=== PATIENT | male | born 2000 | race African-American/Black ===

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

== ENCOUNTER 2019-03-17 20:14 | Emergency (ER) | payer SELFPAY ==
[~2019-03-17] VITALS: Ht 188 cm; Wt 71.7 kg
[~2019-03-17 20:14] MED LIST changes: +ERYT1OIN6 LEFTEYE; +HYDR-2761 PO
[2019-03-17 21:26] LABS: BASO % 0 % (0-3); EOS % 0 % (0-3); HEMATOCRIT 47.7 % (39.0-53.0); HEMOGLOBIN 15.8 g/dL (13.0-17.5); LYMPH # 0.5 x10^3/uL (1.0-4.8); LYMPH % 5 % (24-48); MEAN CORPUSCULAR HEMOGLOBIN 28 pg (25-35); MEAN CORPUSCULAR HGB CONC 33 g/dL (31-37); MEAN CORPUSCULAR VOLUME 86 fL (79-100); MONO # 0.8 x10^3/uL (0.0-1.1); MONO % 7 % (0-9); NEUT # 9.2 x10^3/uL (1.8-7.7); NEUT % 87 % (31-73); PLATELET COUNT 212 x10^3/uL (140-400); RED BLOOD COUNT 5.55 x10^6/uL (4.30-5.70); RED CELL DISTRIBUTION WIDTH 13.1 % (11.5-14.5); WHITE BLOOD COUNT 10.6 x10^3/uL (4.0-11.0)
[2019-03-17] MEDS ORDERED: IV NORMAL SALINE 1000ML BAG 1,000 ML IV ONE (21:30)
[2019-03-17] MEDS ORDERED: ONDANSETRON PF 4 MG/2 ML VIAL. IV ONE (21:30)
[2019-03-17 21:40] LABS: ALBUMIN 4.1 g/dL (3.4-5.0); ALBUMIN/GLOBULIN RATIO 1.2 (1.0-1.7); CALCIUM 8.9 mg/dL (8.5-10.1); CREATININE 1.2 mg/dL (0.7-1.3); GFR 94.4; POTASSIUM 3.5 mmol/L (3.5-5.1); TOTAL BILIRUBIN 1.4 mg/dL (0.2-1.0); TOTAL PROTEIN 7.6 g/dL (6.4-8.2)
[2019-03-17 21:47] LABS: % ATYL 3 % (0-0); % BANDS 9 % (0-9); % LYMPHS 3 % (24-48); % MONOS 5 % (0-10); % SEGS 80 % (35-66); PLT ESTIMATE ADEQUATE (ADEQUATE)
[2019-03-17 23:28] LABS: BILIRUBIN,URINE NEGATIVE (NEG); CLARITY,URINE CLEAR; COLOR,URINE YELLOW; NITRITE,URINE NEGATIVE (NEG); PH,URINE 8.5; PROTEIN,URINE NEGATIVE (NEG-TRACE)
[2019-03-17 23:38] LABS: SQUAMOUS EPITHELIAL CELL,UR OCC /LPF
[2019-03-17 23:39] LABS: AMORPHOUS SEDIMENT,UR PRESENT /HPF; BACTERIA,URINE 0 /HPF (0-FEW); RBC,URINE 0 /HPF (0-2)
[2019-03-17] MEDS ORDERED: ONDA4TAB11 PO (23:56)
--- NOTE | 2019-03-17 23:57 | PHYS DOC ---
Past Medical History Past Medical History: No Pertinent History (TONIE PAULA APRN) Past Surgical History: No Surgical History (TONIE PAULA APRN) Alcohol Use: None Drug Use: Marijuana (TONIE PAULA APRN) Attending Signature I have participated in the care of this patient and I have reviewed and agree with all pertinent clinical information above including history, exam, and recommendations. (RICARDO HYATT MD) Adult General Chief Complaint Chief Complaint: ABDOMINAL PAIN HPI HPI Patient is a 18 year old AA male who presents to the emergency department with complaints of nausea, vomiting, and abdominal pain that started approximately one hour ago. Patient states that he last ate at [employer] 3 hours ago and that he thinks he might have food poisoning. Patient states he has only vomited one time. He denies any shortness of breath, chest pain, palpitations, cough, wheezing, fever, sore throat, ear pain, or headache. Patient states he does feel a little lightheaded at this time. He currently rates his pain as 7 out of 10 on a pain scale he describes it as a crampy pain in his abdomen only. He denies any alleviating or exacerbating factors. Patient states he smokes marijuana occasionally but he denies smoking any marijuana today. All other ROS is neg unless otherwise noted in HPI. (TONIE PAULA APRN) Review of Systems Review of Systems See Above (TONIE PAULA APRN) Current Medications Current Medications Current Medications Medications (Trade) Dose Ordered Sig/Vika Start Time Stop Time Status Last Admin Dose Admin Lorazepam (Ativan Inj) 1 mg 1X ONCE 03/17/19 21:30 03/17/19 21:31 DC 03/17/19 21:27 1 MG Ondansetron HCl (Zofran) 4 mg 1X ONCE 03/17/19 21:30 03/17/19 21:31 DC 03/17/19 21:27 4 MG Sodium Chloride 1,000 ml @ 1,000 mls/hr 1X ONCE 03/17/19 21:30 03/17/19 22:29 DC 03/17/19 21:28 1,000 MLS/HR (RICARDO HYATT MD) Allergies Allergies Allergies Coded Allergies Type Severity Reaction Last Updated Verified No Known Drug Allergies 01/22/14 No (RICARDO HYATT MD) Physical Exam Physical Exam See Above Constitutional: Well developed, well nourished, no acute distress, non-toxic appearance. [] HENT: Normocephalic, atraumatic, bilateral external ears normal, oropharynx moist, no oral exudates, nose normal. [] Eyes: PERRLA, EOMI, conjunctiva normal, no discharge. [] Neck: Normal range of motion, no tenderness, supple, no stridor. [] Cardiovascular:Heart rate regular rhythm, no murmur [] Lungs & Thorax: Bilateral breath sounds clear to auscultation [] Abdomen: Bowel sounds normal, soft, no tenderness, no masses, no pulsatile masses. [] Skin: Warm, dry, no erythema, no rash. [] Back: No tenderness, no CVA tenderness. [] Extremities: No cyanosis, ROM intact, no edema. [] Neurologic: Alert and oriented X 3, no focal deficits noted. [] Psychologic: Affect normal, judgement normal, mood normal. [] (TONIE PAULA APRN) Current Patient Data Vital Signs Vital Signs Date Time Temp Pulse Resp B/P (MAP) Pulse Ox O2 Delivery O2 Flow Rate FiO2 03/18/19 00:00 86 25 104/52 (69) 100 Room Air 03/17/19 20:26 97.9 97.9 (RICARDO HYATT MD) Lab Values Laboratory Tests Test 03/17/19 21:15 03/17/19 23:20 White Blood Count 10.6 x10^3/uL (4.0-11.0) Red Blood Count 5.55 x10^6/uL (4.30-5.70) Hemoglobin 15.8 g/dL (13.0-17.5) Hematocrit 47.7 % (39.0-53.0) Mean Corpuscular Volume 86 fL (79-100) Mean Corpuscular Hemoglobin 28 pg (25-35) Mean Corpuscular Hemoglobin Concent 33 g/dL (31-37) Red Cell Distribution Width 13.1 % (11.5-14.5) Platelet Count 212 x10^3/uL (140-400) Neutrophils (%) (Auto) 87 % (31-73) H Lymphocytes (%) (Auto) 5 % (24-48) L Monocytes (%) (Auto) 7 % (0-9) Eosinophils (%) (Auto) 0 % (0-3) Basophils (%) (Auto) 0 % (0-3) Neutrophils # (Auto) 9.2 x10^3/uL (1.8-7.7) H Lymphocytes # (Auto) 0.5 x10^3/uL (1.0-4.8) L Monocytes # (Auto) 0.8 x10^3/uL (0.0-1.1) Eosinophils # (Auto) 0.0 x10^3/uL (0.0-0.7) Basophils # (Auto) 0.0 x10^3/uL (0.0-0.2) Segmented Neutrophils % 80 % (35-66) H Band Neutrophils % 9 % (0-9) Lymphocytes % 3 % (24-48) L Atypical Lymphocytes % (Manual) 3 % (0-0) H Monocytes % 5 % (0-10) Platelet Estimate Adequate (ADEQUATE) Sodium Level 139 mmol/L (136-145) Potassium Level 3.5 mmol/L (3.5-5.1) Chloride Level 100 mmol/L (98-107) Carbon Dioxide Level 26 mmol/L (21-32) Anion Gap 13 (6-14) Blood Urea Nitrogen 9 mg/dL (8-26) Creatinine 1.2 mg/dL (0.7-1.3) Estimated GFR (Cockcroft-Gault) 94.4 BUN/Creatinine Ratio 8 (6-20) Glucose Level 134 mg/dL (70-99) H Calcium Level 8.9 mg/dL (8.5-10.1) Total Bilirubin 1.4 mg/dL (0.2-1.0) H Aspartate Amino Transferase (AST) 16 U/L (15-37) Alanine Aminotransferase (ALT) 12 U/L (16-63) L Alkaline Phosphatase 64 U/L (46-116) Total Protein 7.6 g/dL (6.4-8.2) Albumin 4.1 g/dL (3.4-5.0) Albumin/Globulin Ratio 1.2 (1.0-1.7) Lipase 47 U/L (73-393) L Urine Collection Type Unknown Urine Color Yellow Urine Clarity Clear Urine pH 8.5 Urine Specific [place] 1.020 Urine Protein Negative mg/dL (NEG-TRACE) Urine Glucose (UA) Negative mg/dL (NEG) Urine Ketones (Stick) Trace mg/dL (NEG) Urine Blood Negative (NEG) Urine Nitrite Negative (NEG) Urine Bilirubin Negative (NEG) Urine Urobilinogen Dipstick 1.0 mg/dL (0.2 mg/dL) Urine Leukocyte Esterase Negative (NEG) Urine RBC 0 /HPF (0-2) Urine WBC 1-4 /HPF (0-4) Urine Squamous Epithelial Cells Occ /LPF Urine Amorphous Sediment Present /HPF Urine Bacteria 0 /HPF (0-FEW) Urine Mucus Mod /LPF Laboratory Tests 03/17/19 21:15 Laboratory Tests 03/17/19 21:15 (RICARDO HYATT MD) EKG EKG [] (TONIE PAULA APRN) Radiology/Procedures Radiology/Procedures [] (TONIE PAULA APRN) Course & Med Decision Making Course & Med Decision Making Pertinent Labs and Imaging studies reviewed. (See chart for details) dx: Nausea and vomiting Is a 18-year-old -Citizen Of [place] male who presented to the emergency department with complaints of nausea, vomiting and nonspecific abdominal pain that began an hour prior to arrival. CBC, CMP, and UA are unremarkable for any acute findings. VSS. Patient was given a liter of normal saline, 4 mg Zofran, 1 mg of Ativan IV. He reported feeling better after these medications. A prescription was written for Zofran. Patient was encouraged to follow a clear liquid diet for the next 24 hours and advance his diet as tolerated. [] (TONIE PAULA APRN) Dragon Disclaimer Dragon Disclaimer This electronic medical record was generated, in whole or in part, using a voice recognition dictation system. (TONIE PAULA APRN) Departure Departure Impression: Primary Impression: Nausea & vomiting Disposition: 01 HOME, SELF-CARE Condition: STABLE Referrals: BRAXTON CHAVEZ MD (PCP) Patient Instructions: Abdominal Pain (Nonspecific) Additional Instructions: Fill prescriptions and use them as directed. Recommend clear fluids for the next 24 hours. Then you may advance to bland foods such as bananas, rice, applesauce, and dry toast. Follow-up with your primary care doctor in the next 1-2 days. Return to the emergency room if your symptoms worsen. Scripts Ondansetron Hcl (ONDANSETRON HCL) 4 Mg Tablet 1 TAB PO PRN Q6HRS PRN for NAUSEA/VOMITING for 3 Days, #10 TAB 0 Refills Prov: TONIE PAULA APRN 03/17/19 Problem Qualifiers Primary Impression: Nausea & vomiting Vomiting type: unspecified Vomiting Intractability: non-intractable Qualified Codes: R11.2 - Nausea with vomiting, unspecified TONIE PAULA APRN Mar 17, 2019 23:56 RICARDO HYATT MD Mar 21, 2019 02:08
[2019-03-18] VITALS: BP 104/52
== END 2019-03-18 00:15 | disposition home or self-care (01) ==
LOC: ER 20:14
DX: R11.2 Nausea with vomiting, unspecified (principal); R10.9 Unspecified abdominal pain; R42 Dizziness and giddiness
CPT/HCPCS: 36415; 80053; 81001; 83690; 85007; 85025; 96361; 96374; 96375; 99284; J2060; J2405; J7030; 99281

== ENCOUNTER 2020-02-29 15:30 | Emergency (ER) | payer MEDICARE ==
[~2020-02-29] VITALS: Ht 185.4 cm; Wt 72.7 kg
[~2020-02-29 15:30] MED LIST changes: +ONDA-84 PO
[2020-02-29 17:02] LABS: INFLUENZA A PATIENT NEGATIVE (NEGATIVE); INFLUENZA B PATIENT NEGATIVE (NEGATIVE)
--- NOTE | 2020-02-29 18:38 | ED.ADGEN ---
Past Medical History Past Medical History: No Pertinent History Past Surgical History: No Surgical History Smoking Status: Never Smoker Alcohol Use: None Drug Use: Marijuana General Adult EDM: Chief Complaint: SORE THROAT HPI: HPI: Patient is a 19 year old AA male who presents emergency department with compl aints of a sore throat, cough, body aches, and a headache for the last 2 days. Patient states that he had to call into work and that they are requiring him to get a work excuse in order to return. He denies any known contact with anyone who has COVID-19. He denies any abdominal pain, nausea, vomiting, diarrhea, shortness of breath, chest pain, fever, dizziness, or change in smell or taste. Currently denies any pain. Review of Systems: Review of Systems: Complete ROS is negative unless otherwise noted in HPI. Allergies: Allergies: Allergies Coded Allergies Type Severity Reaction Last Updated Verified No Known Drug Allergies 01/22/14 No Physical Exam: PE: See Above Constitutional: Well developed, well nourished, no acute distress, non-toxic appearance. [] HENT: Normocephalic, atraumatic, bilateral external ears normal, nose normal; mild erythema posterior pharynx [] Eyes: PERRLA, EOMI, conjunctiva normal, no discharge. [] Neck: Normal range of motion, supple, no stridor. [] Cardiovascular:Heart rate regular rhythm Lungs & Thorax: Respirations even and unlabored, no retractions, no respiratory distress Skin: Warm, dry, no erythema, no rash. [] Extremities: No cyanosis, ROM intact, no edema. [] Neurologic: Alert and oriented X 3, no focal deficits noted. [] Psychologic: Affect normal, judgement normal, mood normal. [] Current Patient Data: Labs: Laboratory Tests Test 02/29/20 16:10 Influenza Type A Antigen Negative (NEGATIVE) Influenza Type B Antigen Negative (NEGATIVE) Vital Signs: Vital Signs Date Time Temp Pulse Resp B/P (MAP) Pulse Ox O2 Delivery O2 Flow Rate FiO2 02/29/20 18:45 74 19 131/82 (98) 97 Room Air 02/29/20 15:49 98.5 98.5 EKG: EKG: [] Heart Score: Risk Factors: Risk Factors: DM, Current or recent (<one month) smoker, HTN, HLP, family history of CAD, obesity. Risk Scores: Score 0 - 3: 2.5% MACE over next 6 weeks - Discharge Home Score 4 - 6: 20.3% MACE over next 6 weeks - Admit for Clinical Observation Score 7 - 10: 72.7% MACE over next 6 weeks - Early Invasive Strategies Radiology/Procedures: Radiology/Procedures: [] Course & Med Decision Making: Course & Med Decision Making Pertinent Labs and Imaging studies reviewed. (See chart for details) 19-year-old male presented to the emergency room with request for a work note. He reports she had a sore throat and is not felt well for 2 days. Rapid strep and flu tests are negative, COVID-19 test is pending. Patient was provided with COVID-19 information and quarantine instructions. I encouraged him to follow these instructions, he can return to work once his symptoms have resolved for 72 hours and he knows the results of his COVID-19 test. Patient verbalized an understanding of home care, medications, follow-up, and return to ED instructions and was in agreement with the plan of care. [] I have reviewed the PA/ACQUISITION MARKETING COORDINATOR's note and Plan of Care. I was available for consultation as needed during the patient's visit in the emergency department. I agree with the clinical impression, plans and disposition. Faiza Disclaimer: Faiza Disclaimer: This electronic medical record was generated, in whole or in part, using a voice recognition dictation system. Departure Departure Impression: Primary Impression: Acute sore throat Additional Impression: Person under investigation for COVID-19 Disposition: 01 DC HOME SELF CARE/HOMELESS Condition: STABLE Referrals: BRAXTON CHAVEZ MD (PCP) Patient Instructions: Viral Pharyngitis Additional Instructions: You have been tested for or diagnosed with COVID-19. It is an infection caused by a new type of coronavirus. COVID-19 will cause cold-like or mild flu symptoms in most. It can cause more severe symptoms like problems breathing in some. There is no treatment for COVID-19. The body will clear the infection over time. Self-care will help to ease discomfort. Steps to Take: Self-Care Rest as needed. Healthy habits may help you feel better. Steps include: Choose healthy foods including fruits and vegetables. Drink water throughout the day. Get plenty of sleep each night. If you smoke, try to quit. It may ease breathing. Avoid alcohol. Keep Others Healthy The virus can spread to others. Droplets are released every time you sneeze or cough. The droplets can get into the mouth, nose, or eyes of people near you and lead to infection. To lower the chances of spreading COVID-19 to others: Stay at home until your doctor has said it is safe to leave. If you tested positive this will mean staying isolated until both of the following are true: At least 7 days have passed since the start of illness. You are free of fever for at least 72 hours without the use of medicine. During this time: - Avoid public areas, events, or transportation. Do not return to work or school until your doctor has said it is safe to do so. - Call ahead if you need to go to a medical center. Let them know you may have COVID-19. It will help them guide you where to go. They may also ask you to wear a facemask when you come to the office. - If you call for emergency medical services, let them know you may have COVID- 19. While at home: - Try to avoid close contact with others. Stay about 6 feet away. - If possible, spend most of your time in a separate room from others. - Use a face mask if you will be in close contact with others such as sharing a room or vehicle. - Have someone wipe down common surfaces in the home. Use household infrastructure technician every day on areas like doorknobs, counters, or sinks. - Cough or sneeze into a tissue. Throw the tissue away right after use. If a tissue is not available, cough or sneeze into your elbow. - Wash your hands often. Wash them after sneezing or coughing. Use soap and water and wash for at least 20 seconds. Alcohol based hand wheat cleaner can be used if soap and water is not available. - Do not prepare food for others. Avoid sharing personal items like forks, spoons, or toothbrushes. - Avoid close contact with pets while you are sick. There is no evidence of the virus passing to pets. This is a safety step until more is known about this virus. Isolation can be frustrating. Social interaction can help. Keep in touch with friends and family through phone and tech options. You can still interact with others in your home, just keep a safe distance of about 6 feet. Follow-up: Your doctors office will check in with you to see if there are any changes in y our health. You may be asked to keep track of symptoms to share with them. They will also let you know when you are clear to be in public again. Problems to Look Out For: Contact your doctor if your recovery is not going as you expect. Get emergency care if you have problems such as: - Trouble breathing - Nonstop chest pain or pressure - Changes in awareness, confusion, or problems waking - Lips or face have bluish color - Worsening of symptoms If you think you have an emergency, call for emergency medical services right away. As taken from [facility] Health Problem Qualifiers TONIE PAULA APRN Feb 29, 2020 18:37 ADRIAN WEST MD Mar 01, 2020 00:05
[2020-02-29 18:45] VITALS: BP 131/82
--- NOTE | 2020-03-03 09:55 | NUR ---
IP: Informed pt and pt's father of pt's positive COVID test and need to quarantine for 10 days. Both verbalized understanding.
--- NOTE | 2020-03-04 11:49 | VNOTE ---
CALL BACK NOTE CALL BACK Microbiology 02/29/20 Nose/Throat Culture - Final, Complete 02/29/20 Antimicrobic Susceptibility - Final, Complete I spoke with the patient about his cx result. Will call in RX to [facility] and state. I talked to the microbiology lab at [facility] who ran the culture who state that the interpretation for penicillin should read S for sensitive not Reji. Will have special makeup fx artist instructor call in Rx for Pencillin 500 mg PO BID x10 days. I have reviewed the PA/KNOWLEDGE ENGINEER's note and plan of care. I was available for consultation as needed during the patient's visit in the emergency department. I agree with the clinical impression, plan, and disposition. TONIE PAULA APRN Mar 04, 2020 11:49 DIXIE TENORIO DO Mar 04, 2020 14:13
== END 2020-02-29 18:45 | disposition home or self-care (01) ==
LOC: ER 17:09
DX: U07.1 COVID-19 (principal); J02.9 Acute pharyngitis, unspecified; R05 Cough; R51.9 Headache, unspecified; L53.9 Erythematous condition, unspecified; F12.90 Cannabis use, unspecified, uncomplicated
CPT/HCPCS: 87070; 87804; 87880; 99283; C9803; U0003

== ENCOUNTER 2021-01-09 20:36 | Emergency (ER) | payer MEDICARE ==
[~2021-01-09] VITALS: Ht 185.4 cm; Wt 72.7 kg
[2021-01-09 21:07] VITALS: BP 97/63
--- NOTE | 2021-01-09 22:12 | PHYS DOC ---
Past Medical History Past Medical History: No Pertinent History Past Surgical History: No Surgical History Smoking Status: Never Smoker Alcohol Use: None Drug Use: Marijuana General Adult EDM: Chief Complaint: KNEE INJURY HPI: HPI: Patient is a 20 year old male presents with a chief complaint of left knee pa in. Patient states he injured his left knee while at work. Patient struck his left knee on a metal rack. Sudden onset of pain. Patient states felt like is knee cap was dislocated. On exam no deformities noted. Review of Systems: Review of Systems: Constitutional: Denies fever or chills. [] Eyes: Denies change in visual acuity. [] HENT: Denies nasal congestion or sore throat. [] Respiratory: Denies cough or shortness of breath. [] Cardiovascular: Denies chest pain or edema. [] GI: Denies abdominal pain, nausea, vomiting, bloody stools or diarrhea. [] : Denies dysuria. [] Musculoskeletal: Denies back pain positive knee pain Integument: Denies rash. [] Neurologic: Denies headache, focal weakness or sensory changes. [] Endocrine: Denies polyuria or polydipsia. [] Lymphatic: Denies swollen glands. [] Psychiatric: Denies depression or anxiety. [] Heart Score: C/O Chest Pain: N/A Risk Factors: Risk Factors: DM, Current or recent (<one month) smoker, HTN, HLP, family history of CAD, obesity. Risk Scores: Score 0 - 3: 2.5% MACE over next 6 weeks - Discharge Home Score 4 - 6: 20.3% MACE over next 6 weeks - Admit for Clinical Observation Score 7 - 10: 72.7% MACE over next 6 weeks - Early Invasive Strategies Allergies: Allergies: Allergies Coded Allergies Type Severity Reaction Last Updated Verified No Known Drug Allergies 01/22/14 No Physical Exam: PE: Constitutional: Well developed, well nourished, no acute distress, non-toxic appearance. [] HENT: Normocephalic, atraumatic, bilateral external ears normal, oropharynx moist, no oral exudates, nose normal. [] Eyes: PERRLA, EOMI, conjunctiva normal, no discharge. [] Neck: Normal range of motion, no tenderness, supple, no stridor. [] Cardiovascular:Heart rate regular rhythm, no murmur [] Lungs & Thorax: Bilateral breath sounds clear to auscultation [] Abdomen: Bowel sounds normal, soft, no tenderness, no masses, no pulsatile masses. [] Skin: Warm, dry, no erythema, no rash. [] Back: No tenderness, no CVA tenderness. [] Extremities: No tenderness, no cyanosis, no clubbing, ROM intact, no edema. [left knee pain with rom no deformities] Neurologic: Alert and oriented X 3, normal motor function, normal sensory function, no focal deficits noted. [] Psychologic: Affect normal, judgement normal, mood normal. [] Current Patient Data: Vital Signs: Vital Signs Date Time Temp Pulse Resp B/P (MAP) Pulse Ox O2 Delivery O2 Flow Rate FiO2 01/09/21 20:56 98.3 70 131/82 (98) 98 Room Air 98.3 EKG: EKG: [] Radiology/Procedures: Radiology/Procedures: [] Course & Med Decision Making: Course & Med Decision Making Pertinent Labs and Imaging studies reviewed. (See chart for details) [] Dragon Disclaimer: Dragon Disclaimer: This electronic medical record was generated, in whole or in part, using a voice recognition dictation system. Departure Departure Impression: Primary Impression: Knee pain Disposition: HOME / SELF CARE / HOMELESS Referrals: BRAXTON CHAVEZ MD (PCP) Patient Instructions: Knee Pain OLGA OSHEA I DO Jan 09, 2021 22:12
--- NOTE | 2021-01-09 23:01 | RAD ---
Exam: Left knee radiograph Indication: Reason: pain / Spl. Instructions: / History: . Comparison: Unavailable. Findings: No acute fracture. Normal alignment is preserved throughout the knee. The soft tissues are unremarkab le. No sizable joint effusion. Impression: Normal left knee radiograph. Electronically signed by: Cirilo Bowen DO (01/09/2021 10:59 PM) [facility]
== END 2021-01-09 22:59 | disposition home or self-care (01) ==
LOC: ER 20:36
DX: M25.562 Pain in left knee (principal)
CPT/HCPCS: 73562; 99283

== ENCOUNTER 2021-01-30 10:34 | Emergency (ER) | payer MEDICARE ==
[~2021-01-30] VITALS: Ht 185.4 cm; Wt 73.6 kg
--- NOTE | 2021-01-30 12:19 | PHYS DOC ---
Past Medical History Past Medical History: No Pertinent History (RAKAN CHAN APRN) Past Surgical History: No Surgical History (RAKAN CHAN APRN) Smoking Status: Never Smoker Alcohol Use: None Drug Use: Marijuana (RAKAN CHAN APRN) General Adult EDM: Chief Complaint: ABDOMINAL PAIN HPI: HPI: Patient is a 20 year old male with chief complaint of diffuse abdominal pain. Patient states pain started approximately a month or 2 ago he says it is kind of all over the place he thought it was reflux disease and has been drinking milk on a daily basis with no relief of symptoms. Patient states pain gets worse when he is sleeping, states pain is located below the umbilicus centrally located, describes pain as stabbing shooting and does wake him up in the night. Patient denies nausea vomiting diarrhea states has bowel movements daily and feels they are normal for him. (RAKAN CHAN APRN) Review of Systems: Review of Systems: Constitutional: Denies fever or chills. [] Eyes: Denies change in visual acuity. [] HENT: Denies nasal congestion or sore throat. [] Respiratory: Denies cough or shortness of breath. [] Cardiovascular: Denies chest pain or edema. [] GI: abdominal pain and indigestion, denies nausea, vomiting, bloody stools or diarrhea. [] : Denies dysuria or penile discharge[] Musculoskeletal: Denies back pain or joint pain. [] Integument: Denies rash. [] Neurologic: Denies headache, focal weakness or sensory changes. [] Endocrine: Denies polyuria or polydipsia. [] Lymphatic: Denies swollen glands. [] Psychiatric: Denies depression or anxiety. [] (RAKAN CHAN APRN) Heart Score: C/O Chest Pain: N/A Risk Factors: Risk Factors: DM, Current or recent (<one month) smoker, HTN, HLP, family history of CAD, obesity. Risk Scores: Score 0 - 3: 2.5% MACE over next 6 weeks - Discharge Home Score 4 - 6: 20.3% MACE over next 6 weeks - Admit for Clinical Observation Score 7 - 10: 72.7% MACE over next 6 weeks - Early Invasive Strategies (RAKAN CHAN APRN) Allergies: Allergies: Allergies Coded Allergies Type Severity Reaction Last Updated Verified No Known Drug Allergies 01/22/14 No (RAKAN CHAN APRN) Physical Exam: PE: Constitutional: Well developed, well nourished, no acute distress, non-toxic appearance. [] HENT: Normocephalic, atraumatic, bilateral external ears normal, oropharynx moist, no oral exudates, nose normal. [] Eyes: PERRLA, EOMI, conjunctiva normal, no discharge. [] Neck: Normal range of motion, no tenderness, supple, no stridor. [] Cardiovascular:Heart rate regular rhythm, no murmur [] Lungs & Thorax: Bilateral breath sounds clear to auscultation [] Abdomen: Bowel sounds normal, soft, lower abdominal pain tenderness lower middle quaderant, no masses, no pulsatile masses. [] Skin: Warm, dry, no erythema, no rash. [] Back: No tenderness, no CVA tenderness. [] Extremities: No tenderness, no cyanosis, no clubbing, ROM intact, no edema. [] Neurologic: Alert and oriented X 3, normal motor function, normal sensory function, no focal deficits noted. [] Psychologic: Affect normal, judgement normal, mood normal. [] (RAKAN CHAN APRN) Current Patient Data: Labs: Laboratory Tests Test 01/30/21 11:01 01/30/21 11:47 Urine Collection Type Unknown Urine Color Yellow Urine Clarity Clear Urine pH 8.5 Urine Specific [place] 1.025 Urine Protein 30 mg/dL Urine Glucose (UA) Negative mg/dL Urine Ketones (Stick) Negative mg/dL Urine Blood Negative Urine Nitrite Negative Urine Bilirubin Negative Urine Urobilinogen Dipstick 0.2 mg/dL Urine Leukocyte Esterase Negative Urine RBC 0 /HPF Urine WBC 0 /HPF Urine Bacteria 0 /HPF Urine Mucus Marked /LPF White Blood Count 4.9 x10^3/uL Red Blood Count 5.00 x10^6/uL Hemoglobin 14.5 g/dL Hematocrit 43.9 % Mean Corpuscular Volume 88 fL Mean Corpuscular Hemoglobin 29 pg Mean Corpuscular Hemoglobin Concent 33 g/dL Red Cell Distribution Width 13.6 % Platelet Count 221 x10^3/uL Neutrophils (%) (Auto) 49 % Lymphocytes (%) (Auto) 38 % Monocytes (%) (Auto) 11 % Eosinophils (%) (Auto) 1 % Basophils (%) (Auto) 1 % Neutrophils # (Auto) 2.4 x10^3/uL Lymphocytes # (Auto) 1.8 x10^3/uL Monocytes # (Auto) 0.6 x10^3/uL Eosinophils # (Auto) 0.1 x10^3/uL Basophils # (Auto) 0.0 x10^3/uL Sodium Level 139 mmol/L Potassium Level 4.0 mmol/L Chloride Level 104 mmol/L Carbon Dioxide Level 29 mmol/L Anion Gap 6 Blood Urea Nitrogen 6 mg/dL Creatinine 1.1 mg/dL Estimated GFR (Cockcroft-Gault) 102.2 BUN/Creatinine Ratio 5 Glucose Level 101 mg/dL Calcium Level 8.4 mg/dL Total Bilirubin 0.6 mg/dL Aspartate Amino Transf (AST/SGOT) 22 U/L Alanine Aminotransferase (ALT/SGPT) 23 U/L Alkaline Phosphatase 55 U/L Total Protein 6.9 g/dL Albumin 3.7 g/dL Albumin/Globulin Ratio 1.2 Lipase 31 U/L Current Medications Medications (Trade) Dose Ordered Sig/Vika Route PRN Reason Start Time Stop Time Status Last Admin Dose Admin Iohexol (Omnipaque 300 Mg/ml) 75 ml 1X ONCE IV 01/30/21 13:00 01/30/21 13:05 DC 01/30/21 13:00 Multi-Ingredient Mouthwash/Gargle (Gi Cocktail) 20 ml 1X ONCE SWSW 01/30/21 13:15 01/30/21 13:16 DC 01/30/21 13:52 Info (CONTRAST GIVEN -- Rx MONITORING) 1 each PRN DAILY PRN MC SEE COMMENTS 01/30/21 13:15 02/01/21 13:14 Multi-Ingredient Mouthwash/Gargle (Gi Cocktail) 20 ml 1X ONCE SWSW 01/30/21 14:00 01/30/21 14:01 DC Vital Signs: Vital Signs Date Time Temp Pulse Resp B/P (MAP) Pulse Ox O2 Delivery O2 Flow Rate FiO2 01/30/21 11:16 97.8 67 16 107/62 (77) 97 Room Air 97.8 (RAKAN CHAN REPACKER) EKG: EKG: [] (RAKAN CHAN REPACKER) Radiology/Procedures: Radiology/Procedures: PROCEDURE: CT ABD PELV W/ IV CONTRST ONLY EXAM: Abdomen and pelvis CT with intravenous contrast. HISTORY: Pain. TECHNIQUE: Computed tomographic images of the abdomen and pelvis were obtained following the administration of intravenous contrast. Multiplanar reformatting was performed. *One or more of the following individualized dose reduction techniques were utilized for this examination: 1. Automated exposure control. 2. Adjustment of the mA and/or kV according to patient size. 3. Use of iterative reconstruction technique. COMPARISON: None. FINDINGS: Evaluation of the lower thorax is unremarkable. No hepatic lesion is seen. There is mild periportal edema, likely due to relative rapid bolus patient hydration. The gallbladder, pancreas, spleen, adrenal glands, stomach and kidneys are unremarkable. There is no appendicitis. There is no bowel obstruction or abnormal bowel wall thickening. The bladder is unremarkable. There is a small amount of free fluid within the right hemipelvis. The aorta is normal in caliber. There is no lymphadenopathy. There is no acute or suspicious osseous finding. IMPRESSION: 1. Small amount of nonspecific free fluid within the right hemipelvis. This is separate from a normal-appearing appendix within the right lower quadrant. 2. Otherwise, relatively unremarkable abdomen and pelvis CT. (RAKAN CHAN REPACKER) Course & Med Decision Making: Course & Med Decision Making Pertinent Labs and Imaging studies reviewed. (See chart for details) [1345 patient states pain is improved but not totally gone, patient informed this REPACKER that pain has been going on for over a year not just the next couple months. Awaiting CT results and UA results] 1445 patient states pain is improved, repeat exam no abdominal pain or tenderness noted. Patient given recurrent return precautions. Patient agrees to follow-up with primary care or clinic within the next 5 to 7 days patient agrees with plan. (RAKAN CHAN APRN) Course & Med Decision Making I have personally seen and was available for consultation in the emergency department for this patient that was seen by midlevel provider. Agree with plan. Upon discharge examination, the patient was explained return precautions, his repeat abdominal exam is unremarkable and he is comfortable with plan for discharge home and return if needed. Jamil Holloway DO (JAMIL HOLLOWAY DO) Faiza Disclaimer: Faiza Disclaimer: This electronic medical record was generated, in whole or in part, using a voice recognition dictation system. (RAKAN CHAN APRN) Departure Departure Impression: Primary Impression: Abdominal pain Qualified Codes: R10.84 - Generalized abdominal pain Disposition: HOME / SELF CARE / HOMELESS Condition: STABLE Referrals: BRAXTON CHAVEZ MD (PCP) Patient Instructions: Abdominal Pain (Nonspecific) Additional Instructions: Return to the emergency department for increased pain fever nausea vomiting or drip and/or diarrhea. Follow-up with primary care physician or clinic within the next 5 to 7 days for follow-up exam Take Pepcid [id number] as labeled directed for indigestion concerns RAKAN CHAN APRN Jan 30, 2021 12:19 JAMIL HOLLOWAY DO Jan 30, 2021 16:11
[2021-01-30 12:35] LABS: BASO % 1 % (0-3); EOS # 0.1 x10^3/uL (0.0-0.7); EOS % 1 % (0-3); HEMATOCRIT 43.9 % (39.0-53.0); HEMOGLOBIN 14.5 g/dL (13.0-17.5); LYMPH # 1.8 x10^3/uL (1.0-4.8); LYMPH % 38 % (24-48); MEAN CORPUSCULAR HEMOGLOBIN 29 pg (25-35); MEAN CORPUSCULAR HGB CONC 33 g/dL (31-37); MEAN CORPUSCULAR VOLUME 88 fL (79-100); MONO # 0.6 x10^3/uL (0.0-1.1); MONO % 11 % (0-9); NEUT # 2.4 x10^3/uL (1.8-7.7); NEUT % 49 % (31-73); PLATELET COUNT 221 x10^3/uL (140-400); RED CELL DISTRIBUTION WIDTH 13.6 % (11.5-14.5); WHITE BLOOD COUNT 4.9 x10^3/uL (4.0-11.0)
[2021-01-30 12:51] LABS: CALCIUM 8.4 mg/dL (8.5-10.1); CREATININE 1.1 mg/dL (0.7-1.3); GFR 102.2
[2021-01-30 12:55] LABS: ALBUMIN 3.7 g/dL (3.4-5.0); ALBUMIN/GLOBULIN RATIO 1.2 (1.0-1.7); TOTAL BILIRUBIN 0.6 mg/dL (0.2-1.0); TOTAL PROTEIN 6.9 g/dL (6.4-8.2)
[2021-01-30] MEDS ORDERED: IOHEXOL 300 MG/ML 100ML VIAL. IV ONE (13:00)
[2021-01-30] MEDS ORDERED: CONTRAST GIVEN. MC PRN (13:15)
[2021-01-30] MEDS ORDERED: LIDO:MAALOX 1:1 20 ML SINGLE DOSE. SWSW ONE ×2 (13:15→14:00)
--- NOTE | 2021-01-30 13:43 | RAD ---
EXAM: Abdomen and pelvis CT with intravenous contrast. HISTORY: Pain. TECHNIQUE: Computed tomographic images of the abdomen and pelvis were obtained following the administ ration of intravenous contrast. Multiplanar reformatting was performed. *One or more of the following individualized dose reduction techniques were utilized for this examina tion: 1. Automated exposure control. 2. Adjustment of the mA and/or kV according to patient size. 3. Use of iterative reconstruction technique. COMPARISON: None. FINDINGS: Evaluation of the lower thorax is unremarkable. No hepatic lesion is seen. There is mild pe riportal edema, likely due to relative rapid bolus patient hydration. The gallbladder, pancreas, sple en, adrenal glands, stomach and kidneys are unremarkable. There is no appendicitis. There is no bowel obstruction or abnormal bowel wall thickening. The bladder is unremarkable. There is a small amount of free fluid within the right hemipelvis. The aorta is normal in caliber. There is no lymphadenopath y. There is no acute or suspicious osseous finding. IMPRESSION: 1. Small amount of nonspecific free fluid within the right hemipelvis. This is separate from a normal -appearing appendix within the right lower quadrant. 2. Otherwise, relatively unremarkable abdomen and pelvis CT. Electronically signed by: Savannah Obando MD (01/30/2021 1:40 PM) [id number]
[2021-01-30 13:55] LABS: BILIRUBIN,URINE NEGATIVE (NEG); CLARITY,URINE CLEAR; COLOR,URINE YELLOW; NITRITE,URINE NEGATIVE (NEG); PH,URINE 8.5 (<5.0-8.0); PROTEIN,URINE 30 mg/dL (NEG-TRACE); UROBILINOGEN,URINE 0.2 mg/dL (0.2 mg/dL)
[2021-01-30 14:27] LABS: BACTERIA,URINE 0 /HPF (0-FEW); RBC,URINE 0 /HPF (0-2); WBC,URINE 0 /HPF (0-4)
[2021-01-30 14:56] VITALS: BP 120/65
== END 2021-01-30 15:02 | disposition home or self-care (01) ==
LOC: ER 10:34
DX: R10.84 Generalized abdominal pain (principal); K30 Functional dyspepsia
CPT/HCPCS: 36415; 74177; 80053; 81001; 83690; 85025; 99285; Q9967

== ENCOUNTER 2021-03-15 16:21 | Emergency (ER) | payer MEDICARE ==
[~2021-03-15] VITALS: Ht 182.9 cm; Wt 86.0 kg
[2021-03-15] MEDS ORDERED: IV NORMAL SALINE 1000ML BAG 1,000 ML IV ONE (16:45)
[2021-03-15 16:51] LABS: BASO # 0.1 x10^3/uL (0.0-0.2); BASO % 1 % (0-3); EOS % 0 % (0-3); HEMATOCRIT 43.6 % (39.0-53.0); HEMOGLOBIN 14.5 g/dL (13.0-17.5); LYMPH # 1.8 x10^3/uL (1.0-4.8); LYMPH % 23 % (24-48); MEAN CORPUSCULAR HEMOGLOBIN 29 pg (25-35); MEAN CORPUSCULAR HGB CONC 33 g/dL (31-37); MEAN CORPUSCULAR VOLUME 88 fL (79-100); MONO # 0.6 x10^3/uL (0.0-1.1); MONO % 8 % (0-9); NEUT # 5.2 x10^3/uL (1.8-7.7); NEUT % 68 % (31-73); PLATELET COUNT 224 x10^3/uL (140-400); RED BLOOD COUNT 4.99 x10^6/uL (4.30-5.70); RED CELL DISTRIBUTION WIDTH 13.7 % (11.5-14.5); WHITE BLOOD COUNT 7.6 x10^3/uL (4.0-11.0)
--- NOTE | 2021-03-15 16:54 | PHYS DOC ---
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 Another coworker saw him and called 911. He never passed out and states he stayed alert and awake the whole time. He states that his whole body tensed up and EMS states when he got there he seemed to have cramps in his hands bilaterally as if he was having a panic attack. Patient states this has happened 3 years ago one other time and they diagnosed him with a panic attack. He states that this time he just feels slightly tired. Review of Systems: Review of Systems: Constitutional: Denies fever or chills. [] Eyes: Denies change in visual acuity. [] HENT: Denies nasal congestion or sore throat. [] Respiratory: Denies cough or shortness of breath. [] Cardiovascular: Denies chest pain or edema. [] GI: Denies abdominal pain, nausea, vomiting, bloody stools or diarrhea. [] : Denies dysuria. [] Musculoskeletal: Denies back pain or joint pain. [] Integument: Denies rash. [] Neurologic: Denies headache, focal weakness or sensory changes. + Near syncope [] Endocrine: Denies polyuria or polydipsia. [] Lymphatic: Denies swollen glands. [] Psychiatric: Denies depression or anxiety. [] Heart Score: C/O Chest Pain: No Current Medications: Current Medications Medications (Trade) Dose Ordered Sig/Vika Start Time Stop Time Status Last Admin Dose Admin Sodium Chloride 1,000 ml @ 1,000 mls/hr 1X ONCE 03/15/21 16:45 03/15/21 17:44 UNV Allergies: Allergies: Allergies Coded Allergies Type Severity Reaction Last Updated Verified No Known Drug Allergies 01/22/14 No Physical Exam: PE: Constitutional: Well developed, well nourished, no acute distress, non-toxic appearance. [] HENT: Normocephalic, atraumatic, bilateral external ears normal, oropharynx moist, no oral exudates, nose normal. [] Eyes: PERRLA, EOMI, conjunctiva normal, no discharge. [] Neck: Normal range of motion, no tenderness, supple, no stridor. [] Cardiovascular:Heart rate regular rhythm, no murmur [] Lungs & Thorax: Bilateral breath sounds clear to auscultation [] Abdomen: Bowel sounds normal, soft, no tenderness, no masses, no pulsatile masses. [] Skin: Warm, dry, no erythema, no rash. [] Back: No tenderness, no CVA tenderness. [] Extremities: No tenderness, no cyanosis, no clubbing, ROM intact, no edema. [] Neurologic: Alert and oriented X 3, normal motor function, normal sensory function, no focal deficits noted. [] Psychologic: Affect normal, judgement normal, mood normal. [] Normal physical exam EKG: EK and read by Dr. Vieira as sinus rhythm and no STEMI Radiology/Procedures: Radiology/Procedures: [] Impression: [facility] [address] [place] [address] IMAGING REPORT Signed PATIENT: MILAD CHIRINOS LACCOUNT: [id number] : 2000 LOCATION: ER AGE: 20 SEX: M EXAM STATUS: PRE ER ORD. PHYSICIAN: JAY DICKERSON APRN REASON: near syncope PROCEDURE: PORTABLE CHEST 1V EXAMINATION: XR CHEST 1V CLINICAL HISTORY: Near syncope EXAM DATE/TIME: 03/15/2021 4:58 PM COMPARISON: None FINDINGS: Lines, Tubes, and Devices: None. Cardiomediastinal Silhouette: Within normal limits. Lungs and Pleura: No evidence of focal airspace consolidation, pleural effusion, or pneumothorax. Bones and Soft Tissues: No acute osseous abnormality. IMPRESSION: No evidence of acute cardiopulmonary abnormality. Electronically signed by: Milad Deal DO (03/15/2021 5:26 PM) [facility] DICTATED and SIGNED BY: MILAD DEAL DO DATE: 03/15/21 [id number] [facility] [address] [place], [place] [id number] IMAGING REPORT Signed PATIENT: MILAD CHIRINOS LACCOUNT: [id number] : 2000 LOCATION: ER AGE: 20 SEX: M EXAM STATUS: REG ER ORD. PHYSICIAN: JAY DICKERSON APRN REASON: near syncope PROCEDURE: CT HEAD WO CONTRAST EXAMINATION: CT HEAD/BRAIN WO CLINICAL HISTORY: Near syncope TECHNIQUE: Serial axial images without IV contrast were obtained from the vertex to the foramen magnum. CT Dose Reduction Employed: One or more of the following individualized dose reduction techniques were utilized for this examination: 1. Automated exposure control 2. Adjustment of the mA and/or kV according to patient size 3. Use of iterative reconstruction technique. COMPARISON: None FINDINGS: Acute Change: No evidence of acute intracranial abnormality. Hemorrhage: No evidence of acute intracranial hemorrhage. Mass Lesion/Mass Effect: No evidence of intracranial mass or extraaxial fluid collection. No significant mass effect. Parenchyma: Parenchyma within normal limits for age. Ventricles: Ventricles within normal limits for age. Paranasal Sinuses and Skull Base: Visualized paranasal sinuses clear. Visualized skull base and soft tissues unremarkable. IMPRESSION: No evidence of acute intracranial abnormality. Electronically signed by: Milad Deal DO (03/15/2021 6:02 PM) [facility] DICTATED and SIGNED BY: MILAD DEAL DO DATE: 03/15/21 [id number] Course & Med Decision Making: Course & Med Decision Making Pertinent Labs and Imaging studies reviewed. (See chart for details) See HPI. Alert and oriented x4. Ambulatory steady gait. Speaks in full clear sentences. Mucous membranes are moist. He states he has not ate much today but again drink plenty of water. Skin pink warm and dry. CT head is normal. Blood work was unremarkable. Patient's magnesium and potassium were low. I will replace both before discharging the patient home. Chest x-ray is normal. [] Dragon Disclaimer: Dragon Disclaimer: This electronic medical record was generated, in whole or in part, using a voice recognition dictation system. Departure Departure Impression: Primary Impression: Near syncope Additional Impressions: Hypomagnesemia Hypokalemia Disposition: 01 HOME / SELF CARE / HOMELESS Condition: STABLE Referrals: BRAXTON CHAVEZ MD (PCP) Patient Instructions: Hypokalemia, Hypomagnesemia, Near-Syncope Additional Instructions: Follow-up with your primary care physician in the next week. Drink plenty of fluids stay hydrated. Start taking a multivitamin daily. JAY DICKERSON APRN Mar 15, 2021 16:54
[2021-03-15 17:00] LABS: CALCIUM 8.8 mg/dL (8.5-10.1); CREATININE 1.2 mg/dL (0.7-1.3); GFR 92.5; POTASSIUM 3.3 mmol/L (3.5-5.1)
[2021-03-15 17:03] LABS: ALBUMIN 4.1 g/dL (3.4-5.0); ALBUMIN/GLOBULIN RATIO 1.3 (1.0-1.7); MAGNESIUM 1.7 mg/dL (1.8-2.4); TOTAL PROTEIN 7.2 g/dL (6.4-8.2)
--- NOTE | 2021-03-15 17:28 | RAD ---
EXAMINATION: XR CHEST 1V CLINICAL HISTORY: Near syncope EXAM DATE/TIME: 03/15/2021 4:58 PM COMPARISON: None FINDINGS: Lines, Tubes, and Devices: None. Cardiomediastinal Silhouette: Within normal limits. Lungs and Pleura: No evidence of focal airspace consolidation, pleural effusion, or pneumothorax. Bones and Soft Tissues: No acute osseous abnormality. IMPRESSION: No evidence of acute cardiopulmonary abnormality. Electronically signed by: Milad Martin DO (03/15/2021 5:26 PM) [facility]
[2021-03-15 17:41] LABS: BILIRUBIN,URINE NEGATIVE (NEG); CLARITY,URINE CLEAR; COLOR,URINE YELLOW; NITRITE,URINE NEGATIVE (NEG); PH,URINE 8.5 (<5.0-8.0); PROTEIN,URINE NEGATIVE (NEG-TRACE)
[2021-03-15 17:49] LABS: AMPHETAMINE/METHAMPHETAMINE NEG (NEG); BARBITURATES NEG (NEG); BENZODIAZEPINES NEG (NEG); CANNABINOIDS POS (NEG); COCAINE NEG (NEG); METHADONE NEG (NEG); OPIATES NEG (NEG); PHENCYCLIDINE NEG (NEG)
--- NOTE | 2021-03-15 18:05 | RAD ---
EXAMINATION: CT HEAD/BRAIN WO CLINICAL HISTORY: Near syncope TECHNIQUE: Serial axial images without IV contrast were obtained from the vertex to the foramen magnu m. CT Dose Reduction Employed: One or more of the following individualized dose reduction techniques wer e utilized for this examination: 1. Automated exposure control 2. Adjustment of the mA and/or kV ac cording to patient size 3. Use of iterative reconstruction technique. COMPARISON: None FINDINGS: Acute Change: No evidence of acute intracranial abnormality. Hemorrhage: No evidence of acute intracranial hemorrhage. Mass Lesion/Mass Effect: No evidence of intracranial mass or extraaxial fluid collection. No signific ant mass effect. Parenchyma: Parenchyma within normal limits for age. Ventricles: Ventricles within normal limits for age. Paranasal Sinuses and Skull Base: Visualized paranasal sinuses clear. Visualized skull base and soft tissues unremarkable. IMPRESSION: No evidence of acute intracranial abnormality. Electronically signed by: Milad Martin DO (03/15/2021 6:02 PM) [facility]
[2021-03-15] MEDS ORDERED: POTASSIUM CHLORIDE 20 MEQ TABLET.ER. PO ONE (18:15)
[2021-03-15] MEDS ORDERED: MAGNESIUM SULFATE 2GM 50 ML IV ONE (18:15)
[2021-03-15 18:23] LABS: BACTERIA,URINE FEW /HPF (0-FEW)
[2021-03-15 18:43] VITALS: BP 122/71
--- NOTE | 2021-03-16 13:54 | EKG ---
[facility] [address] [place] [address] Test Date: 2021-03-15 Test Time: 16:32:07 Pat Name: MILAD CHIRINOS Department: Room: Gender: M Customer Service Cashier: SANDRA : 2000 Requested By: JAY DICKERSON Order Number: [id number] Reading MD: Bib Martinez Measurements Intervals [place] Rate: 62 P: 33 MD: 170 QRS: 69 QRSD: 94 T: 51 QT: 376 QTc: 384 Interpretive Statements SINUS RHYTHM SEPTAL ANTERIOR ST T WAVE CHANGES Electronically Signed On 03-23-2021 11:46:01 YOUTH MANAGER by Bib Martinez
== END 2021-03-15 20:10 | disposition home or self-care (01) ==
LOC: ER 16:21
DX: R55 Syncope and collapse (principal); E87.6 Hypokalemia; E83.42 Hypomagnesemia
CPT/HCPCS: 36415; 70450; 71045; 80053; 80307; 81001; 83735; 83880; 84484; 85025; 93005; 96361; 96365; 96366; 99285; J3475; J7030

== ENCOUNTER 2021-03-29 20:38 | Emergency (ER) | payer MEDICARE ==
--- NOTE | 2021-04-01 19:26 | EKG ---
[facility] [address] [place] [address] Test Date: 2021-03-29 Test Time: 20:40:20 Pat Name: MILAD CHIRINOS Department: Room: Gender: M Presiding Steward: : 2000 Requested By: NAOMY SALAZAR Order Number: [id number] Reading MD: Measurements Intervals [place] Rate: 76 P: 53 MT: 172 QRS: 61 QRSD: 86 T: 41 QT: 366 QTc: 416 Interpretive Statements SINUS RHYTHM NORMAL ECG RI6.02 No previous ECG available for comparison
== END 2021-03-29 21:30 | disposition left against medical advice (07) ==
LOC: ER 20:38
DX: R07.89 Other chest pain (principal); Z53.21 Procedure and treatment not carried out due to patient leaving prior to being seen by health care provider
CPT/HCPCS: 93005

== ENCOUNTER 2021-04-04 09:06 | Emergency (ER) | payer MEDICARE ==
[~2021-04-04] VITALS: Ht 185.4 cm; Wt 77.8 kg
--- NOTE | 2021-04-04 10:03 | RAD ---
Exam performed: One view chest. Indication: Reason: SOA / Spl. Instructions: / History: Date of Service: 04/04/2021 9:39 AM Comparison: One view chest from March 15, 2021. Single AP upright portable view chest findings: Cardiomediastinal silhouette is within limits of normal. No acute infiltrates, effusion or pneumotho rax is detected. The bony structures are normal. Impression: No acute cardiopulmonary process is detected. Electronically signed by: Aliza Mireles MD (04/04/2021 10:01 AM) [facility]
[2021-04-04 10:23] VITALS: BP 110/72
--- NOTE | 2021-04-04 10:23 | PHYS DOC ---
Past Medical History Past Medical History: No Pertinent History Past Surgical History: No Surgical History Smoking Status: Never Smoker Alcohol Use: None Drug Use: Marijuana General Adult EDM: Chief Complaint: CHEST PAIN HPI: HPI: 20 year old male presents with chest pain. The pain woke him up in the middle of the night and is located all throughout his anterior chest. He reports that the pain gets worse when he gets up to move and was also worse while he was being driven to the ED this morning. He says that the pain feels much better now, but worsens if he gets up to do anything. He describes the pain as dull when resting and sharp/heavy when he gets up and moves around. He reports associated shortness of breath, palpitations, nausea, and tingling when his pain is at its worst. He denies perspiration, abdominal pain, and leg swelling. Review of Systems: Review of Systems: Constitutional: Denies fever or chills Eyes: Denies redness or eye pain HENT: Denies nasal congestion or sore throat Respiratory: Denies cough. Reports shortness of breath Cardiovascular: Reports chest pain and palpitations GI: Denies abdominal pain or vomiting. Reports nausea. : Denies dysuria or hematuria Musculoskeletal: Denies back pain or joint pain Integument: Denies rash or skin lesions Neurologic: Denies headache. Reports weakness and tingling with pain. Complete systems were reviewed and found to be within normal limits, except as documented in this note. Heart Score: C/O Chest Pain: Yes HEART Score for Chest Pain: HEART Score for Chest Pain Response (Comments) Value History Slighlty/Non-Suspicious 0 ECG Normal 0 Age < 45 0 Risk Factors No Risk Factors 0 Total 0 Risk Factors: Risk Factors: DM, Current or recent (<one month) smoker, HTN, HLP, family history of CAD, obesity. Risk Scores: Score 0 - 3: 2.5% MACE over next 6 weeks - Discharge Home Score 4 - 6: 20.3% MACE over next 6 weeks - Admit for Clinical Observation Score 7 - 10: 72.7% MACE over next 6 weeks - Early Invasive Strategies Allergies: Allergies: Allergies Coded Allergies Type Severity Reaction Last Updated Verified No Known Drug Allergies 03/15/21 No Physical Exam: PE: Constitutional: Well developed, well nourished, no acute distress, non-toxic appearance HENT: Normocephalic, atraumatic Eyes: PERRL, EOMI, conjunctiva normal, no discharge Neck: Normal range of motion, no tenderness, supple Lungs & Thorax: No respiratory distress, equal chest rise and fall. Lungs clear to auscultation bilaterally. No tenderness to palpation of anterior chest wall. Cardiovascular: Regular rate and rhythm with no murmur appreciated. No edema. Abdomen: Soft, no tenderness Skin: Warm, dry, no erythema, no rash Back: No tenderness, no CVA tenderness Extremities: No tenderness, ROM intact, no edema Neurologic: Alert and oriented X 3, normal motor function, normal sensory functi on, no focal deficits noted Psychologic: Affect normal, judgment normal Current Patient Data: Vital Signs: Vital Signs Date Time Temp Pulse Resp B/P (MAP) Pulse Ox O2 Delivery O2 Flow Rate FiO2 04/04/21 09:31 97.7 86 16 112/68 (83) 100 Room Air 97.7 EKG: EKG: @ 9:30 am. NSR with a rate of 57, QRS 82, QT/QTc 356/349.[] Radiology/Procedures: Radiology/Procedures: [] Course & Med Decision Making: Course & Med Decision Making Pertinent Labs and Imaging studies reviewed. (See chart for details) 20 year old male presents with chest pain. A cardiac workup, including an EKG, CKMB, and Troponin were acquired and came back normal. A CBC and CMP were obtained to assess for metabolic or hematologic derangements and came back normal. He was instructed to follow-up as scheduled with cardiology to assess possible cardiac pathology/arrhythmia. He was also given anxiety medication to help with shaking that he has been having since this episode started. Patient stable for discharge with outpatient follow-up with PCP. Discussed findings and plan with patient, who acknowledges understanding and agreement. [] Dragon Disclaimer: Dragon Disclaimer: This electronic medical record was generated, in whole or in part, using a voice recognition dictation system. Departure Departure Impression: Primary Impression: Atypical chest pain Disposition: HOME / SELF CARE / HOMELESS Condition: STABLE Referrals: BRAXTON CHAVEZ MD (PCP) MULU KIM MD Patient Instructions: Anxiety and Panic Attacks, [id number], Chest Pain (Nonspecific), Ztwd-el-[id number] Additional Instructions: Follow closely with your doctor for further evaluation. Scripts Lorazepam (ATIVAN) 0.5 Mg Tablet 0.5 MG PO TID PRN for ANXIETY, #10 TAB Prov: DIXIE TENORIO DO 04/04/21 PERC Rule for PE PERC Rule for PE PERC Rule for PE Response (Comments) Value Age > 50: No 0 HR > 100: No 0 Sa02 on room air <95%: No 0 Unilateral leg swelling: No 0 Hemoptysis: No 0 Recent surgery or trauma: No 0 Prior PE or DVT: No 0 Hormone use: No 0 Total 0 DIXIE TENORIO DO Apr 04, 2021 10:23
[2021-04-04 10:34] LABS: BASO % 1 % (0-3); EOS # 0.1 x10^3/uL (0.0-0.7); EOS % 2 % (0-3); HEMATOCRIT 46.4 % (39.0-53.0); LYMPH % 38 % (24-48); MEAN CORPUSCULAR HEMOGLOBIN 29 pg (25-35); MEAN CORPUSCULAR HGB CONC 32 g/dL (31-37); MEAN CORPUSCULAR VOLUME 88 fL (79-100); MONO # 0.6 x10^3/uL (0.0-1.1); MONO % 12 % (0-9); NEUT # 2.5 x10^3/uL (1.8-7.7); NEUT % 48 % (31-73); PLATELET COUNT 230 x10^3/uL (140-400); RED BLOOD COUNT 5.27 x10^6/uL (4.30-5.70); RED CELL DISTRIBUTION WIDTH 13.7 % (11.5-14.5); WHITE BLOOD COUNT 5.3 x10^3/uL (4.0-11.0)
[2021-04-04 10:44] LABS: CALCIUM 8.9 mg/dL (8.5-10.1); CREATININE 0.9 mg/dL (0.7-1.3); GFR 128.9
[2021-04-04 10:48] LABS: ALBUMIN 4.2 g/dL (3.4-5.0); ALBUMIN/GLOBULIN RATIO 1.3 (1.0-1.7); TOTAL BILIRUBIN 0.4 mg/dL (0.2-1.0); TOTAL PROTEIN 7.5 g/dL (6.4-8.2)
[2021-04-04] MEDS ORDERED: LORA0.5T96 PO (11:00)
--- NOTE | 2021-04-05 06:55 | EKG ---
[facility] [address] [place] [address] Test Date: 2021-04-04 Test Time: 09:20:36 Pat Name: MILAD CHIRINOS Department: Room: Gender: M History Teacher: : 2000 Requested By: DIXIE TENORIO Order Number: [id number] Reading MD: Measurements Intervals [place] Rate: 57 P: -54 [place]: 174 QRS: 68 QRSD: 82 T: 61 QT: 356 QTc: 349 Interpretive Statements SINUS RHYTHM INCOMPLETE RIGHT BUNDLE BRANCH BLOCK OTHERWISE NORMAL ECG RI6.02 No previous ECG available for comparison
== END 2021-04-04 11:00 | disposition home or self-care (01) ==
LOC: ER 09:06
DX: R07.89 Other chest pain (principal); R06.02 Shortness of breath; R00.2 Palpitations; R11.0 Nausea
CPT/HCPCS: 36415; 71045; 80053; 82553; 83690; 83735; 84484; 85025; 93005; 99285

== ENCOUNTER 2021-06-07 18:52 | Emergency (ER) | payer MEDICARE ==
[~2021-06-07] VITALS: Ht 185.4 cm; Wt 75.0 kg
[~2021-06-07 18:52] MED LIST changes: +LORA0.5T96 PO
[2021-06-07 19:28] VITALS: BP 150/84
--- NOTE | 2021-06-07 19:34 | PHYS DOC ---
Past Medical History Past Medical History: No Pertinent History Past Surgical History: No Surgical History Smoking Status: Never Smoker Alcohol Use: None Drug Use: Marijuana General Adult EDM: Chief Complaint: ANKLE PROBLEM HPI: HPI: Patient is a 21 year old male who presents to the ED today complaining of 10 out of 10 left anterior ankle pain, symptoms began after he took a nap this evening no known injury. Patient states symptoms are worse on range of motion to the ankle. Denies anything specifically relieving the symptoms. He states he is able to ambulate Review of Systems: Review of Systems: Constitutional: Denies fever or chills. [] Musculoskeletal: Reports left ankle pain Integument: Denies rash. [] Neurologic: Denies headache, focal weakness or sensory changes. [] Psychiatric: Denies depression or anxiety. [] Heart Score: C/O Chest Pain: N/A Risk Factors: Risk Factors: DM, Current or recent (<one month) smoker, HTN, HLP, family history of CAD, obesity. Risk Scores: Score 0 - 3: 2.5% MACE over next 6 weeks - Discharge Home Score 4 - 6: 20.3% MACE over next 6 weeks - Admit for Clinical Observation Score 7 - 10: 72.7% MACE over next 6 weeks - Early Invasive Strategies Allergies: Allergies: Allergies Coded Allergies Type Severity Reaction Last Updated Verified No Known Drug Allergies 03/15/21 No Physical Exam: PE: Constitutional: Well developed, well nourished, no acute distress, non-toxic appearance. [] Skin: Warm, dry, no erythema, no rash. [] Back: No tenderness, no CVA tenderness. [] Extremities: Left ankle, left foot with no obvious deformity, no edema, no ecchymosis, no tenderness on exam of the left ankle, foot including navicular bone or base of the fifth metatarsal, full range of motion to the left ankle, foot, toes. Cap refill less than 2 seconds to left toes Neurologic: Alert and oriented X 3, normal motor function, normal sensory function, no focal deficits noted. [] Psychologic: Affect normal, judgement normal, mood normal. [] Current Patient Data: Vital Signs: Vital Signs Date Time Temp Pulse Resp B/P (MAP) Pulse Ox O2 Delivery O2 Flow Rate FiO2 06/07/21 19:04 98.2 64 18 121/71 (88) 99 Room Air 98.2 EKG: EKG: [] Radiology/Procedures: Radiology/Procedures: []PROCEDURE: ANKLE LEFT 3V Exam: Left ankle 3 views INDICATION: Pain TECHNIQUE: Frontal, lateral and oblique views of the left ankle Comparisons: None FINDINGS: Bone mineralization is normal. No acute or healed fractures. Soft tissues are unremarkable. Joint spaces are well-maintained. IMPRESSION: No acute osseous abnormality. Electronically signed by: Garrett Pedro MD (06/07/2021 7:37 PM) [facility] DICTATED and SIGNED BY: GARRETT PEDRO MD DATE: 06/07/21 [id number] 0 Course & Med Decision Making: Course & Med Decision Making Pertinent Labs and Imaging studies reviewed. (See chart for details) This is a 21-year-old male patient presented to the ED today with left ankle pain that began this evening after taking a nap, no known injury. Left ankle xrays interpreted by Radiologist was negative for any acute findings. Hawk bandage applied to the left ankle by me, neurovascular exam done by me is normal. Ice elevation encouraged. Naproxen for pain. Follow-up with Ortho in 1 week if pain persist Dragon Disclaimer: Dragon Disclaimer: This electronic medical record was generated, in whole or in part, using a voice recognition dictation system. Departure Departure Impression: Primary Impression: Left ankle pain Qualified Codes: M25.572 - Pain in left ankle and joints of left foot Disposition: 01 HOME / SELF CARE / HOMELESS Condition: STABLE Referrals: BRAXTON CHAVEZ MD (PCP) GURMEET PIERSON Jr. DO follow up in one week Patient Instructions: Ankle Pain Additional Instructions: Your left ankle x-rays are negative for any acute findings. Wear the Hawk bandage provided as tolerated and needed. Try to ice and elevate the extremity. You can take Tylenol or naproxen for pain. Follow-up with your primary care doctor or the provided orthopedic doctor in 1 week if pain persist YAN JACOBS APRN Jun 07, 2021 19:34
--- NOTE | 2021-06-07 19:39 | RAD ---
Exam: Left ankle 3 views INDICATION: Pain TECHNIQUE: Frontal, lateral and oblique views of the left ankle Comparisons: None FINDINGS: Bone mineralization is normal. No acute or healed fractures. Soft tissues are unremarkable. Joint spa kavitha are well-maintained. IMPRESSION: No acute osseous abnormality. Electronically signed by: Garrett Wilburn MD (06/07/2021 7:37 PM) [facility]
== END 2021-06-07 20:17 | disposition home or self-care (01) ==
LOC: ER 18:52
DX: M25.572 Pain in left ankle and joints of left foot (principal)
CPT/HCPCS: 73610; 99283; A6450